=== PATIENT | female | born 1960 | race Caucasian/White ===

== ENCOUNTER → 2019-06-20 | Outpatient (CLI) | payer BC | LOC: MC.RAD 07:02 | DX: Z12.31 Encounter for screening mammogram for malignant neoplasm of breast (principal) ==

== ENCOUNTER 2020-12-18 10:29 | Day surgery (SDC) | payer BC ==
[~2020-12-18] VITALS: Ht 170.2 cm; Wt 68.4 kg
[2020-12-18 10:57] VITALS: BP 126/83; PULSE 80; TEMP 98.4
[2020-12-18 12:40] VITALS: BP 102/67; PULSE 66; TEMP 97.6
[2020-12-18 12:55] VITALS: BP 109/72; PULSE 60
[2020-12-18 13:10] VITALS: BP 112/72; PULSE 64
--- NOTE | 2020-12-18 13:44 | NUR ---
PT RETURNED TO BAY #5 FROM ENDO PROCEDURE ROOM PER CART. , CRISTOPHER WAS PRESENT IN BAY WHEN PT RETURNED. PT ALERT AND ORIENTATED, TALKING WITH STAFF. PT DENIES, PAIN, DISCOMFORT OR NAUSEA AT THIS TIME AND STATES, 'IM HUNGRY'. REQUESTS A BLUEBERRY MUFFIN AND DIET PEPSI. LUNGS CTA, HRR AND STRONG, BOWEL SOUNDS PRESENT AND ACTIVE. IVF FLOWING PATENT INTO RIGHT WRIST. WILL CONT TO MONITOR. WARM BLANKET PROVIDED FOR COMFORT, CALL LIGHTIN REACH.
--- NOTE | 2020-12-18 13:48 | NUR ---
PT TOLERATING FOOD AND FLUIDS WITHOUT DIFFICULTY, NAUSEA OR PAIN. PT IV SITE TO INT NEEDLE. , CRISTOPHER TALKING WITH PT. WILL CONT TO MONITOR.
--- NOTE | 2020-12-18 13:49 | NUR ---
PT DENIES PAIN, NAUSEA OR VOMITING. TOLERATING PO'S WELL. DISMISSAL INSTRUCTIONS GIVEN TO PT AND PT VOICES UNDERSTANDING, DENIES QUESTIONS AND SIGNS DISMISSAL INSTRUCTIONS. IV DC'D TO RIGHT WRIST WITHOUT DIFFICULTY. PT WAS TAKEN TO FAMILY VEHICLE VIA WC, , CRISTOPHER WAS DRIVING.
== END 2020-12-18 13:40 | disposition home or self-care (01) ==
LOC: SDCO 10:29
DX: Z12.11 Encounter for screening for malignant neoplasm of colon (principal); D18.01 Hemangioma of skin and subcutaneous tissue; M50.30 Other cervical disc degeneration, unspecified cervical region; M51.36 Other intervertebral disc degeneration, lumbar region; B35.1 Tinea unguium; Z80.52 Family history of malignant neoplasm of bladder; Z83.6 Family history of other diseases of the respiratory system; Z82.49 Family history of ischemic heart disease and other diseases of the circulatory system
CPT/HCPCS: J2704; J7030

== ENCOUNTER → 2021-01-08 | Outpatient (CLI) | payer BC | LOC: MC.RAD 06:54 | DX: Z12.31 Encounter for screening mammogram for malignant neoplasm of breast (principal) ==

== ENCOUNTER → 2022-03-18 | Outpatient (CLI) | payer BC | LOC: MC.RAD 07:12 | DX: Z12.31 Encounter for screening mammogram for malignant neoplasm of breast (principal) ==

== ENCOUNTER → 2023-05-26 | Outpatient (CLI) | payer OTHER ==
[2005-09-28 10:25] VITALS: TEMP 98.6
== END ==
LOC: MC.RAD 09:48
DX: Z12.31 Encounter for screening mammogram for malignant neoplasm of breast (principal)

== ENCOUNTER → 2024-05-31 | Outpatient (CLI) | payer OTHER | LOC: MC.RAD 07:06 | DX: Z12.31 Encounter for screening mammogram for malignant neoplasm of breast (principal) ==